=== PATIENT | female | born 1985 | race Caucasian/White ===

== ENCOUNTER 2016-09-16 23:38 | Inpatient (IN) ==
[2016-09-17] MEDS ORDERED: ZOFRAN IV PRN (00:47)
[2016-09-17] MEDS ORDERED: DEMEROL INJ PRN (00:47)
[2016-09-17] MEDS ORDERED: STADOL IV PRN ×2 (00:47)
[2016-09-17] MEDS ORDERED: SODIUM CHLORIDE 0.9% INJ PRN (00:47)
[2016-09-17] MEDS ORDERED: AMBIEN PO PRN ×2 (00:47→14:59)
[2016-09-17] MEDS ORDERED: PHENERGAN INJ PRN (00:47)
[2016-09-17] MEDS ORDERED: BRETHINE SUBQ PRN (00:47)
[2016-09-17] MEDS ORDERED: AMPICILLIN 2 GM/NS 100 ML IV ONE (01:00)
[2016-09-17] MEDS: LR 1,000 ML IV SCH ×3 (01:15→12:29)
[2016-09-17] MEDS ORDERED: CERVIDIL VAGINAL VAG ONE (01:30)
[2016-09-17] MEDS ORDERED: TYLENOL PO PRN (02:31)
[2016-09-17 02:41] LABS: MANUAL DIFF NEEDED? NO; URINE SOURCE VOIDED
[2016-09-17 02:45] LABS: BASO% 0.1 % (0.0-0.8); EOS# 0.04 X1000 (0.0-0.7); EOS% 0.4 % (0.0-10.0); HEMOGLOBIN 11.6 g/dL (12.0-16.0); IMM GRAN# 0.04 X1000 (0.0-0.04); IMM GRAN% 0.4 % (0.0-0.5); LYMPH# 2.17 X1000 (1.2-3.4); MCH 32.9 PG (27-31); MCHC 34.1 g/dL (33-37); MCV 96.3 FL (81-99); MONO# 0.69 X1000 (0.11-0.59); MONO% 6.7 % (1.7-9.3); MPV 10.7 FL (7.4-10.4); NEUT% 71.4 % (42.2-75.2); PLT 204 X1000 (130-400); RBC 3.53 XMIL (4.2-5.4)
[2016-09-17 02:48] LABS: BILIRUBIN URINE NEGATIVE (NEGATIVE); BLOOD URINE 1+ (NEGATIVE); CLARITY CLEAR (CLEAR); COLOR YELLOW; GLUCOSE URINE NEGATIVE (NEGATIVE); LEUKOCYTES URINE TRACE (NEGATIVE); NITRITE URINE NEGATIVE (NEGATIVE); PROTEIN URINE NEGATIVE (NEGATIVE); UROBILINOGEN URINE 1+(1 mg/dL)
[2016-09-17] MEDS: AMPICILLIN 1 GM/NS 50 ML IV SCH ×2 (05:58→09:29)
[2016-09-17] MEDS ORDERED: PITOCIN 30 UNITS/LR 500 ML IV SCH (07:00)
[2016-09-17] MEDS ORDERED: MARCAINE 0.25% PF ONE (08:32)
[2016-09-17] MEDS ORDERED: FENTANYL-BUPIV-NS 2 MCG-0.1% 200 ML ONE (08:32)
[2016-09-17] MEDS ORDERED: FENTANYL-BUPIV-NS 2 MCG-0.1% 200 ML EPIDURAL PRN (11:48)
[2016-09-17] MEDS ORDERED: MARCAINE 0.25% PF INJ ONE (12:00)
[2016-09-17] MEDS ORDERED: NAROPIN 0.5% ONE (12:38)
[2016-09-17] MEDS ORDERED: FENTANYL ONE (12:39)
[2016-09-17] MEDS ORDERED: MINERAL OIL ONE (13:51)
[2016-09-17] MEDS ORDERED: XYLOCAINE-MPF 1% ONE (13:51)
[2016-09-17] MEDS ORDERED: PITOCIN 20 UNITS/LR 1,000 ML ONE (14:37)
[2016-09-17] MEDS ORDERED: MINERAL OIL MISC PRN (14:59)
[2016-09-17] MEDS ORDERED: HYDROXYZINE PO PRN (14:59)
[2016-09-17] MEDS ORDERED: XYLOCAINE-MPF 1% INJ PRN (14:59)
[2016-09-17] MEDS ORDERED: PITOCIN IM PRN (14:59)
[2016-09-17] MEDS ORDERED: HYDROXYZINE IM PRN (14:59)
[2016-09-17] MEDS ORDERED: PERI MEDS (DERMOPLAST/NUPERCAINAL/TUCKS) MISC PRN (14:59)
[2016-09-17] MEDS ORDERED: BENADRYL IV PRN (14:59)
[2016-09-17] MEDS ORDERED: PITOCIN 30 UNITS/LR 500 ML IV ONE (14:59)
[2016-09-17] MEDS ORDERED: BENADRYL PO PRN (14:59)
[2016-09-17] MEDS ORDERED: BOOSTRIX VACCINE IM ONE (14:59)
[2016-09-17] MEDS ORDERED: M-M-R II VACCINE SUBQ ONE (14:59)
[2016-09-17] MEDS ORDERED: PITOCIN 20 UNITS/LR 1,000 ML IV SCH (14:59)
[2016-09-17] MEDS ORDERED: CYTOTEC PO PRN (14:59)
[2016-09-17] MEDS ORDERED: FLUZONE QUAD 2016-2017 SYRINGE IM ONE (17:49)
--- NOTE | 2016-09-17 18:16 | OPERATIVE NOTE ---
PROCEDURE DATE: 09/17/2016 PRE DELIVERY DIAGNOSES: 1. Intrauterine at 39+. 2. GBS bacteriuria. 3. Rh-negative blood type. POST DELIVERY DIAGNOSES: 1. Intrauterine at 39+. 2. GBS bacteriuria. 3. Rh-negative blood type. PROCEDURE: Vaginal delivery. PHYSICIAN: Sylvain. ANESTHESIA: Epidural with Dr. Strickland. FINDINGS: Viable male . Do not have weight or Apgars at this time. Cord was 3 vessels. Placenta was spontaneous, intact. There were no lacerations or tears. Counts were correct x3. ESTIMATED BLOOD LOSS: 100 mL. Ms. Marlow is a 31-year-old, 3, para 2, with estimated date of delivery of 10/01/2016, who presented early this morning for labor induction and treatment of GBS bacteriuria. She received 3 doses of antibiotics, received epidural anesthesia, was artificially ruptured, and with Pitocin she reached complete cervical dilatation without distress or dystocia. Began pushing, soon after crowned, at which point the bed was broken down. With continued pushing, she delivered a viable male infant, occiput anterior, over an intact perineum. Shoulders and rest of the body delivered easily. placed on mother's abdomen. Cord was doubly clamped and cut and care of was taken over by nursing personnel. Cord blood was obtained and cord was inspected and found to have 3 vessels. Then gentle traction on the cord resulted in delivery of an intact placenta after approximately 3 minutes. It was discarded. Inspection of the vagina and perineum did not reveal any lacerations, clots, or foreign material. Estimated blood loss 100 mL. All counts are correct. Expect routine .
[2016-09-17] MEDS: MOTRIN PO PRN (19:54)
[2016-09-17] MEDS ORDERED: PERICOLACE PO SCH (21:00)
[2016-09-18 05:56] LABS: MANUAL DIFF NEEDED? NO
[2016-09-18 06:05] LABS: BASO% 0.2 % (0.0-0.8); EOS# 0.09 X1000 (0.0-0.7); EOS% 0.9 % (0.0-10.0); HEMATOCRIT 31.1 % (37.0-47.0); IMM GRAN# 0.03 X1000 (0.0-0.04); IMM GRAN% 0.3 % (0.0-0.5); LYMPH# 2.91 X1000 (1.2-3.4); LYMPH% 27.8 % (20.5-51.1); MCH 31.8 PG (27-31); MCHC 32.2 g/dL (33-37); MONO# 0.95 X1000 (0.11-0.59); MONO% 9.1 % (1.7-9.3); MPV 10.7 FL (7.4-10.4); NEUT% 61.7 % (42.2-75.2); PLT 178 X1000 (130-400); RBC 3.14 XMIL (4.2-5.4)
[2016-09-18] MEDS: NORCO-5 PO PRN ×2 (07:05→11:07)
[2016-09-18] MEDS: MOTRIN PO PRN ×2 (07:05→15:19)
[2016-09-18] MEDS: HEMOCYTE PLUS CAPSULE PO SCH (09:23)
[2016-09-18] MEDS: NORCO-10 PO PRN ×3 (14:32→21:45)
--- NOTE | 2016-09-18 15:16 | PROGRESS NOTE ---
DATE: 09/18/2016 She is day 1. She is without complaints. She has ambulated and voided. Tolerating p.o. Her vital signs stable. She is afebrile. She is alert and cooperative, in no distress. Neck: Supple. Lungs: Clear. Heart: Regular sinus rhythm. Abdomen: Is distended. Uterus: Is firm and nontender. Extremities: +3 lower extremity edema. LABORATORY DATA: Hemoglobin and hematocrit 07/12. Expect routine . DC in the morning.
[2016-09-19] MEDS: MOTRIN PO PRN ×2 (01:32→09:00)
[2016-09-19] MEDS: NORCO-10 PO PRN ×2 (01:33→08:03)
[2016-09-19 08:06] VITALS: BP 123/75
[2016-09-19] MEDS: HEMOCYTE PLUS CAPSULE PO SCH (09:00)
--- NOTE | 2016-09-19 21:20 | DISCHARGE SUMMARY ---
ADMISSION DATE: 09/17/2016 DISCHARGE DATE: 09/19/2016 ADMITTING DIAGNOSIS: 1. Term , for labor induction. 2. Rh negative blood type and Group B strep bacteriuria. DISCHARGE DIAGNOSIS: 1. Term , delivered. 2. Rh negative blood type and Group B strep bacteriuria. CONDITION: Stable. DIET: As tolerated. ACTIVITY: Routine . MEDICATIONS: Wynona 5, Motrin 800, vitamins with iron and stool softener. FOLLOWUP: She is to follow up in 6 weeks at the office. HOSPITAL COURSE: Ms. Marlow was admitted [facility] morning, had a successful vaginal delivery. She has done well afterwards and currently is day 2, desiring discharge. PHYSICAL EXAMINATION: Vital Signs: Stable. She is afebrile. She is alert and cooperative, no distress. Neck: Supple. Lungs: Clear. Heart: Regular sinus rhythm. Abdomen: Slightly distended but uterus is firm. Lochia minimum. Extremities: No cyanosis, clubbing, or edema in her extremities. DISCHARGE INSTRUCTIONS: We will discharge with above instructions.
== END 2016-09-19 13:17 | disposition home or self-care (01) | DRG 775 ==
LOC: P.LD 23:38
PROVIDERS: ADMIT Obstetrics & Gynecology; ATTEND Obstetrics & Gynecology
PROC: 10E0XZZ Delivery of Products of Conception, External Approach (ICD-10-PCS; principal; 2016-09-17)
PROC: 10907ZC Drainage of Amniotic Fluid, Therapeutic from Products of Conception, Via Natural or Artificial Opening (ICD-10-PCS; 2016-09-17)
PROC: 3E033VJ Introduction of Other Hormone into Peripheral Vein, Percutaneous Approach (ICD-10-PCS; 2016-09-17)
PROC: 3E0234Z Introduction of Serum, Toxoid and Vaccine into Muscle, Percutaneous Approach (ICD-10-PCS; 2016-09-18)
DX: O99.824 Streptococcus B carrier state complicating childbirth (principal); O26.893 Other specified pregnancy related conditions, third trimester; Z37.0 Single live birth; Z67.41 Type O blood, Rh negative; Z3A.39 39 weeks gestation of pregnancy
CPT/HCPCS: 59025; 81003; 85025; 85461; 86592; 86900; 86901; J0290; J0595; J2590; J2790; J2795; J3010; J7120; S0020